=== PATIENT | female | born 1975 | race Two or more races ===

== ENCOUNTER 2022-12-04 23:03 | Emergency (ER) | payer OTHER ==
[~2022-12-04] VITALS: Ht 157.5 cm; Wt 49.9 kg
[2022-12-04] MEDS ORDERED: UBRELVY100 MG PO (23:12)
== END 2022-12-05 03:53 ==
LOC: ER 23:03
DX: G43.109 Migraine with aura, not intractable, without status migrainosus (principal)